=== PATIENT | male | born 1985 | race Caucasian/White ===

== ENCOUNTER 2020-07-05 21:44 | Emergency (ER) | payer SELFPAY ==
[~2020-07-05 21:44] MED LIST: FLEXERIL 1010 MG/TAB PO; NAPROSYN500 M1 PO; NORCO 325 MG-51 TAB PO
[2020-07-05 22:27] LABS: URINE WBC 0 /hpf (0-3)
[2020-07-05 22:31] LABS: EOS # 0.2 (0.04-0.40); EOS % 1.6 % (0.0-4.0); HEMATOCRIT 42.9 % (42.0-52.0); HEMOGLOBIN 14.4 g/dL (13.5-18.0); LYMPH# 2.5 (1.50-4.00); MEAN CELL VOLUME 88 fl (78-100); MEAN CORPUSCULAR HEMOGLOBIN 30 pg (27-31); MEAN CORPUSCULAR HGB CONC 34 g/dL (33-37); MEAN PLATELET VOLUME 9.3 fl (7.4-10.4); MONO # 0.8 (0.20-0.80); NEU # 8.1 (1.40-6.50); PLATELET COUNT 261 K/mm3 (130-400); RED BLOOD COUNT 4.88 M/mm3 (4.20-5.60); RED CELL DISTRIBUTION WIDTH 13.7 % (11.5-14.5); WHITE BLOOD COUNT 11.6 K/mm3 (4.8-10.8)
[2020-07-05 22:36] LABS: ALBUMIN 4.6 g/dL (3.5-5.0); POTASSIUM 3.4 mmol/L (3.5-5.1); SODIUM 141 mmol/L (136-145)
[2020-07-05 22:38] LABS: CALCIUM 9.1 mg/dL (8.3-10.5)
[2020-07-05 22:39] LABS: GLUCOSE 136 mg/dL (75-110); TOTAL PROTEIN 7.5 g/dL (6.4-8.3)
[2020-07-05 22:40] LABS: CARBON DIOXIDE 22 mmol/L (22-29)
[2020-07-05 22:41] LABS: TOTAL BILIRUBIN 0.6 mg/dL (0.2-1.2)
[2020-07-05 22:43] LABS: ALCOHOL IN-HOUSE < 10 mg/dL (<10)
[2020-07-05 22:44] LABS: PH-URINE 5.5 (5.0 - 8.0); URINE APPEARANCE HAZY; URINE BILIRUBIN NEGATIVE (NEGATIVE); URINE BLOOD TRACE (NEGATIVE); URINE COLOR YELLOW; URINE KETONE 1+ (NEGATIVE); URINE LEUKOCYTE ESTERASE NEGATIVE (NEGATIVE); URINE NITRATE NEGATIVE (NEGATIVE); URINE PROTEIN(semi-quant) TRACE mg/dL (NEGATIVE); URINE UROBILINOGEN NORMAL (NORMAL)
[2020-07-05 22:44] LABS: AST-SGOT 21 U/L (5-34)
[2020-07-05 22:45] LABS: URINE MUCUS PRESENT (NOT PRESENT)
[2020-07-05 22:46] LABS: ALT/SGPT 26 U/L (0-55)
[2020-07-05 22:47] LABS: ACETAMINOPHEN < 1 ug/mL
[2020-07-06] MEDS ORDERED: CEPHALEXIN500 M2 PO (00:38)
[2020-07-06 08:16] VITALS: BP 120/72
== END 2020-07-06 09:55 ==
LOC: ED 21:44
PROVIDERS: Nurse Practitioner
DX: S51.812A Laceration without foreign body of left forearm, initial encounter (principal); F17.200 Nicotine dependence, unspecified, uncomplicated; X78.1XXA Intentional self-harm by knife, initial encounter; Y92.009 Unspecified place in unspecified non-institutional (private) residence as the place of occurrence of the external cause
CPT/HCPCS: 90715